=== PATIENT | male | born 1970 | race Caucasian/White ===

== ENCOUNTER 2022-01-14 09:29 | Day surgery (SDC) | payer BC ==
[2022-01-11 13:13] VITALS: BMI 34.2
[2022-01-14] MEDS ORDERED: BUPIVACAINE HCL 50 ML ONE (11:33)
[2022-01-14] MEDS ORDERED: MIDAZOLAM HCL 2 MG/2 ML SINGLE DOSE VIAL ONE ×2 (11:48→12:18)
[2022-01-14] MEDS ORDERED: PROPOFOL 20 ML ONE ×2 (11:48)
[2022-01-14] MEDS ORDERED: SUCCINYLCHOLINE CHLORIDE 200 MG/10 ML SYRINGE ONE (11:48)
[2022-01-14] MEDS ORDERED: LIDOCAINE 1%/EPI 1:100000 (20 ML MULTI DOSE VIAL) ONE (11:54)
[2022-01-14] MEDS ORDERED: LIDOCAINE HCL 1%, 10 MG/ML (20ML VIAL) ONE (11:54)
[2022-01-14] MEDS ORDERED: KETOROLAC TROMETHAMINE 30 MG/1 ML VIAL ONE (12:12)
[2022-01-14] MEDS ORDERED: ceFAZolin SODIUM 1 GM VIAL ONE (12:12)
[2022-01-14] MEDS ORDERED: ONDANSETRON 4 MG/2 ML VIAL ONE (12:12)
[2022-01-14] MEDS ORDERED: DEXAMETHASONE SOD PHOSPHATE 4 MG/1 ML VIAL ONE (12:12)
[2022-01-14] MEDS ORDERED: oxyCODONE HCL 5 MG TABLET PO PRN (13:26)
[2022-01-14] MEDS ORDERED: ONDANSETRON 4 MG/2 ML VIAL IVPUSH PRN (13:27)
[2022-01-14 14:56] VITALS: TEMP 97.7
[2022-01-14] MEDS ORDERED: oxyCODONE HCL 5 MG TABLET ONE (15:18)
[2022-01-14] MEDS ORDERED: oxyCODONE HCL 5 MG TABLET PO ONE (15:20)
[2022-01-14 16:01] VITALS: BP 119/77; PULSE 82
== END 2022-01-14 16:00 | disposition home or self-care (01) ==
LOC: FASU 09:29
PROVIDERS: ATTEND Orthopaedic Surgery
PROC: 01N40ZZ Release Ulnar Nerve, Open Approach (ICD-10-PCS; principal; 2022-01-14 12:28)
DX: G56.21 Lesion of ulnar nerve, right upper limb (principal)
CPT/HCPCS: 82962; 94760

== ENCOUNTER 2022-02-25 09:10 | Day surgery (SDC) | payer BC ==
[2022-02-15 16:08] VITALS: BMI 34.2
[2022-02-25] MEDS ORDERED: BUPIVACAINE HCL 50 ML ONE (09:45)
[2022-02-25] MEDS ORDERED: LIDOCAINE HCL 1%, 10 MG/ML (20ML VIAL) ONE (09:48)
[2022-02-25] MEDS ORDERED: FENTANYL CITRATE/PF 50 MCG/ML VIAL ONE (10:10)
[2022-02-25] MEDS ORDERED: MIDAZOLAM HCL 2 MG/2 ML SINGLE DOSE VIAL ONE (10:10)
[2022-02-25] MEDS ORDERED: HYDROmorphone HCL/PF 1 MG/ML VIAL ONE (10:32)
[2022-02-25] MEDS ORDERED: PROPOFOL 20 ML ONE (10:32)
[2022-02-25] MEDS ORDERED: DEXAMETHASONE SOD PHOSPHATE 4 MG/1 ML VIAL ONE (10:42)
[2022-02-25] MEDS ORDERED: ceFAZolin SODIUM 1 GM VIAL ONE (10:42)
[2022-02-25] MEDS ORDERED: ONDANSETRON 4 MG/2 ML VIAL ONE (10:42)
[2022-02-25] MEDS ORDERED: oxyCODONE HCL 5 MG TABLET PO PRN (12:02)
[2022-02-25] MEDS ORDERED: ONDANSETRON 4 MG/2 ML VIAL IVPUSH PRN (12:02)
[2022-02-25] MEDS ORDERED: LACTATED RINGERS SOLUTION 1,000 ML IV SCH (12:15)
[2022-02-25 13:34] VITALS: PULSE 76; TEMP 97.8
[2022-02-25 14:13] VITALS: BP 144/90
== END 2022-02-25 14:17 | disposition home or self-care (01) ==
LOC: FASU 09:10
PROVIDERS: ATTEND Orthopaedic Surgery
PROC: 01N40ZZ Release Ulnar Nerve, Open Approach (ICD-10-PCS; principal; 2022-02-25 10:57)
DX: G56.22 Lesion of ulnar nerve, left upper limb (principal)
CPT/HCPCS: 94760

== ENCOUNTER 2022-07-07 08:33 | Day surgery (SDC) | payer BC ==
[2022-07-06 15:04] VITALS: BMI 34.2
[2022-07-07 10:27] VITALS: RESP 18
[2022-07-07 10:28] VITALS: BP 120/77; PULSE 65; TEMP 98
== END 2022-07-07 10:45 | disposition home or self-care (01) ==
LOC: FASU-ENDO 08:33
PROVIDERS: ATTEND Internal Medicine Gastroenterology
PROC: 0DJD8ZZ Inspection of Lower Intestinal Tract, Via Natural or Artificial Opening Endoscopic (ICD-10-PCS; principal; 2022-07-07 09:43)
DX: Z12.11 Encounter for screening for malignant neoplasm of colon (principal); K57.30 Diverticulosis of large intestine without perforation or abscess without bleeding; Z86.010 Personal history of colon polyps